=== PATIENT | male | born 1965 | race Two or more races ===

== ENCOUNTER 2021-08-18 02:45 | Outpatient (CLI) | payer OTHER | END 2021-08-18 03:15 | disposition home or self-care (01) | LOC: ASH CLINIC 02:45 | DX: Z23 Encounter for immunization (principal); U07.1 COVID-19 ==

== ENCOUNTER 2021-12-10 06:00 | Day surgery (SDC) | payer OTHER ==
[~2021-12-10] VITALS: Ht 177.8 cm; Wt 95.3 kg
[~2021-12-10 06:00] MED LIST: SYMBICORT 16010.2 GM IH
== END 2021-12-10 10:45 | disposition home or self-care (01) ==
LOC: CIR.AMB 06:00
PROVIDERS: ATTEND Orthopaedic Surgery
DX: M75.121 Complete rotator cuff tear or rupture of right shoulder, not specified as traumatic (principal); M75.21 Bicipital tendinitis, right shoulder; M24.111 Other articular cartilage disorders, right shoulder; J34.9 Unspecified disorder of nose and nasal sinuses; Z87.891 Personal history of nicotine dependence